=== PATIENT | female | born 1950 | race Two or more races ===

== ENCOUNTER 2017-06-22 09:36 | Outpatient (CLI) | payer OTHER ==
[~2017-06-22 09:36] MED LIST: CRESTOR20 MG PO; INDERAL LA80 MG PO
== END 2017-06-22 09:55 | disposition home or self-care (01) ==
LOC: MAMO-SONO 09:36
DX: Z12.31 Encounter for screening mammogram for malignant neoplasm of breast (principal); Z87.898 Personal history of other specified conditions; Z16.39 Resistance to other specified antimicrobial drug

== ENCOUNTER 2019-05-11 09:01 | Outpatient (CLI) | payer OTHER | END 2019-05-11 09:24 | disposition home or self-care (01) | LOC: NUCLEAR 09:01 | DX: I65.23 Occlusion and stenosis of bilateral carotid arteries (principal) ==

== ENCOUNTER 2020-06-19 14:22 | Outpatient (CLI) | payer OTHER | END 2020-06-19 14:46 | disposition home or self-care (01) | LOC: TOM 14:22 | PROVIDERS: ATTEND Internal Medicine Cardiovascular Disease | DX: R42 Dizziness and giddiness (principal) ==

== ENCOUNTER 2020-07-25 14:29 | Outpatient (CLI) | payer OTHER | END 2020-07-25 14:30 | disposition home or self-care (01) | LOC: LAB 14:29 | PROVIDERS: ATTEND Radiology Diagnostic Radiology | DX: G40.319 Generalized idiopathic epilepsy and epileptic syndromes, intractable, without status epilepticus (principal) ==

== ENCOUNTER 2020-08-06 07:09 | Outpatient (CLI) | payer OTHER | END 2020-08-06 07:29 | disposition home or self-care (01) | LOC: MRI 07:09 | DX: G40.319 Generalized idiopathic epilepsy and epileptic syndromes, intractable, without status epilepticus (principal); H53.2 Diplopia | CPT/HCPCS: 70553; A9575 ==

== ENCOUNTER 2021-06-04 12:19 | Outpatient (CLI) | payer OTHER | END 2021-06-04 12:36 | disposition home or self-care (01) | LOC: TOM 12:19 | PROVIDERS: ATTEND Internal Medicine Pulmonary Disease | DX: M41.9 Scoliosis, unspecified (principal); J42 Unspecified chronic bronchitis; E78.00 Pure hypercholesterolemia, unspecified; C85.90 Non-Hodgkin lymphoma, unspecified, unspecified site ==